=== PATIENT | male | born 1975 | race Caucasian/White ===

== ENCOUNTER 2021-11-09 22:59 | Emergency (ER) | payer OTHER, SELFPAY ==
[2021-11-09] VITALS (25 sets, daily range): BP systolic 161–222; BP diastolic 80–117; PULSE 80–95; RESP 13–26; TEMP 36.8; O2SAT 92–98
--- NOTE | 2021-11-09 23:00 | RT.EKG_ITS ---
APPROVED REPORT Exam: Resting ECG Reason for Exam: CHEST PAIN Patient Location: E HR:83 bpm ECG Measurements Heart Rate 83 AXIS VA 168 P 29 QRSd 105 QRS 17 QT 381 T 30 QTc 448 Conclusion Sinus rhythm...normal P axis, V-rate 60- 99 Probable left atrial enlargement...P >50mS, <-0.10mV V1 Physician: Sinus rhythm, rate 83, subtle less than a millimeter of elevation in V1, V2, no reciprocal depressions. No STEMI. No evidence of Brugada syndrome, epsilon wave, or delta wave. No de Winter s hyperacute T waves.
--- NOTE | 2021-11-09 23:00 | DI.CT_ITS ---
Exam(s) CT THORAX ABDOMEN CTA EXAM: CT THORAX ABDOMEN CTA CLINICAL HISTORY: chest pain, stabbing, central, severe HTN. TECHNIQUE: Imaging Protocol: Axial CT angiography was performed with multi-slice acquisition and mu lti-planar and/or 3D reconstructions. CONTRAST MATERIAL: Intravenous: Omnipaque 350 Contrast volume:structured data in ml COMPARISON: No exams were available for comparison FINDINGS: CT angiography of the chest was performed with intravenous infusion of 100 cc of Omnipaque 350. Fer tional scanning was continued through the upper abdomen. The lungs are clear. No pleural effusion. Tracheobronchial tree appears intact. No evidence of pulmonary embolic disease. Thoracic aorta is of normal diameter, no thoracic aortic an eurysm or dissection, major branch vessels appear intact. No mediastinal or hilar adenopathy. Images obtained through the upper abdomen show unremarkable appearance of the visualized portions of the liver, spleen, pancreas, and adrenals. Incidental 1 cm left hepatic lobe cyst. The left kidney is in superior pelvic location and is incompletely visualized. Right kidney is also incompletely vis ualized period no gross hydronephrosis or nephrolithiasis as seen.. IMPRESSION: Negative CT angiogram of the chest. No evidence of pulmonary embolic disease or thoracic aortic disse ction or aneurysm. Negative CT angiographic examination of the upper abdomen. RADIATION DOSE DELIVERED: 1,012.07mGy.cm Total DLP 1,012.07mGy.cm Total DLP !Error CTDIvol DATA REPOSITORY: All CT scans at this facility are submitted to the National Radiology Data Registry (NRDR) Dose Index Registry (DIR) with the [employer] (ACR). RADIATION OPTIMIZATION: All CT scans at this facility use at least one of these dose optimization te chniques: automated exposure control; mA and/or kV adjustment per patient size (includes targeted exa ms where dose is matched to clinical indication); or iterative reconstruction.
--- NOTE | 2021-11-09 23:16 | W.ED.GENAD ---
Discharge Plan Disposition Patient Disposition: HOME Condition: Good Discharge Details Clinical Impression: Chest pain Primary Care Provider: None,None ED Provider: Roland Harden Home Meds and New Rx's Prescriptions: No Action No Known Home Meds 0RF Discharge Instructions Instructions: Chest Pain (ED) Additional Instructions: At this time your work-up shows no current evidence of significant cardiac abnormality. The CT scans of your chest showed no problems with your large vessels, lungs, or aorta. Although the work-up is stable now, it is important that if you have any return of your symptoms return for reevaluation. It is also very important that you follow-up closely with primary care provider for reassessment and discussion of potential stress testing. Our care managers will help to establish new primary care provider for you. If you notice any worsening of your symptoms, or any new symptoms such as vomiting, diarrhea, fever, chills, shortness of breath, chest pain, numbness, weakness, or fainting , please return immediately to the emergency department for reevaluation. Please follow up with your primary care provider as soon as possible for reassessment and reevaluation. As always, it was a pleasure participating in your medical care today. Medical Decision Making 46-year-old male who denies any past medical history but he does not go and see a doctor regularly either, presents today for evaluation of chest pain. Patient states that on Friday he had an episode of sharp chest pain which also caused some associated shortness of breath. It is brief and lasted 5 to 15 minutes, and then gradually resolved on its own. It was not with exertion. This evening the episode returned again, it was worse than before, it started about an hour and a half ago. It was sharp in nature, he underwent from his back wrapping around his chest to the front of his chest. He states that it feels like a stabbing sensation. Movement and palpation do not seem to aggravate or worsen it. Does not appear to be seemingly improved by anything aside for time. Currently he states that it is transitioned now to a mild ache, but is still present in the center of his chest. He denies any current shortness of breath. He denies any pleuritic pain. He denies any recent long trips, surgeries or procedures. He denies any history of cardiac disease. But he does admit to a strong family history of cardiac disease especially on his mother side. His mother with massive heart attack at 56, and her male family members all had massive heart attack in their early 50s. Patient does not smoke. He denies any IV or illicit drug use. He denies any cocaine use. He denies any cough, fever or chills. He denies any syncope. No other complaints at this time. No other modifying factors. Physical exam demonstrates a well-appearing male. Blood pressure on the right is notably hypertensive in the low 200s. Blood pressure on the left upper extremity is slightly lower in the 170s to 180s. He otherwise remains hemodynamically stable. Pulses are equal bilaterally. Lungs are clear. There does not appear to be a food timing related component. Abdomen is nontender. Differential at this time does include pneumonia, musculoskeletal component, with the patient's strong family history of cardiovascular disease, and with his symptoms today, dissection and ACS are also on the differential. Initial screening EKG demonstrates very subtle ST elevations less than a millimeter. No reciprocal depressions. No evidence of STEMI. We will evaluate for these life-threatening etiologies, monitor closely and reassess. 1:52 AM On reassessment patient is feeling much better. Pain has completely resolved. Laboratory work-up is returned unremarkable, including troponin. proBNP is normal showing no signs of heart strain. Thyroid function appears stable. COVID test is negative. CTA shows no evidence of dissection, aneurysm, or emboli. We will continue to monitor closely and get repeat EKG and troponin. Patient's heart score is 3 which puts him in a low risk category. However he does have notable family history, which I do feel emphasizes the need for prompt follow-up for reassessment and further discussion of potential stress testing on an outpatient basis. 2:52 AM Laboratory work-up is returned to normal, initial EKG and repeat EKG are both stable. Troponin and delta troponin are both normal. Laboratory work-up shows normal liver function, normal proBNP, normal troponin. Normal thyroid function. Patient remains asymptomatic. Symptoms appear inconsistent with ACS, PE, or dissection at this time. However as stated before I do feel that close follow-up with PCP would be beneficial for reassessment and further discussion of stress testing. Patient has a low risk heart score at this time, patient feels well and would like to go home. Patient will be discharged. Discussed concerning red flags which to return. I have extensively reviewed the treatment plan and discharge instructions with the patient. I have addressed all patient concerns at this time. The patient was made aware of what symptoms to monitor for that would warrant a return to the emergency department. Discussed the plan with the patient, they demonstrate verbal understanding and agreement with our assessment and plan at this time. The documentation in this chart was dictated using [employer] dictation software. Please excuse any dictation errors. EKG 23: 06 Sinus rhythm, rate 83, subtle less than a millimeter of elevation in V1, V2, no reciprocal depressions. No STEMI. No evidence of Brugada syndrome, epsilon wave, or delta wave. No de Mock hyperacute T waves. FINDINGS: Pulmonary arteries: No pulmonary emboli. Aorta: No aortic aneurysm. No aortic dissection. Lungs: No consolidation. No masses. Pleural spaces: No pneumothorax. No pleural effusion. Heart: No cardiomegaly. No pericardial effusion. Lymph nodes: No enlarged lymph nodes. Bones/joints: No acute fracture. Soft tissues: No suspicious lesions. IMPRESSION: No acute findings. HPI General Date/Time Provider Initiated Documentation: 11/09/21 23:11. HPI Narrative: 46-year-old male who denies any past medical history but he does not go and see a doctor regularly either, presents today for evaluation of chest pain. Patient states that on Friday he had an episode of sharp chest pain which also caused some associated shortness of breath. It is brief and lasted 5 to 15 minutes, and then gradually resolved on its own. It was not with exertion. This evening the episode returned again, it was worse than before, it started about an hour and a half ago. It was sharp in nature, he underwent from his back wrapping around his chest to the front of his chest. He states that it feels like a stabbing sensation. Movement and palpation do not seem to aggravate or worsen it. Does not appear to be seemingly improved by anything aside for time. Currently he states that it is transitioned now to a mild ache, but is still present in the center of his chest. He denies any current shortness of breath. He denies any pleuritic pain. He denies any recent long trips, surgeries or procedures. He denies any history of cardiac disease. But he does admit to a strong family history of cardiac disease especially on his mother side. His mother with massive heart attack at 56, and her male family members all had massive heart attack in their early 50s. Patient does not smoke. He denies any IV or illicit drug use. He denies any cocaine use. He denies any cough, fever or chills. He denies any syncope. No other complaints at this time. No other modifying factors. Related Data Home Medications Medication Instructions Recorded Confirmed Unknown [No Known Home Meds] 11/09/21 11/09/21 Allergies Allergy/AdvReac Type Severity Reaction Status Date / Time No Known Allergies Allergy Unverified 11/09/21 23:10 General Stated Complaint: Chest Pain MEENU: 3 Review of Systems All systems reviewed & are unremarkable except as noted in HPI and below PFSH All Active Problems (Updated 11/10/21 @ 01:49 by Roland Harden DO) Chest pain (Acute) Social History Smoking/Tobacco Use Status: Never Smoking risk assessment performed?: Yes Alcohol Intake: never Substance use type: does not use Do you feel safe at home: Yes Do you feel safe in your relationship?: Yes Exam Narrative Exam Narrative: 1.Const: Well-nourished, Well-developed, appearing stated age 2.Eyes: PERRL, no conjunctival injection, and symmetrical lids. 3.ENT: Atraumatic external nose and ears. Moist MM. Neck: Symmetric, trachea midline, No thyromegaly. 4.CVS: +S1/S2, No murmurs or gallops. Peripheral pulses 2+ and equal in all extremities. Brisk capillary refill in all extremities. Radial pulses +2 bilaterally. 5.RESP: Unlabored respiratory effort. Clear to auscultation bilaterally. No wheezes rales or rhonchi 6.GI: Soft, Nontender/Nondistended, No hepatosplenomegaly. No guarding or rebound. 7.MSK: Normocephalic/Atraumatic, Extremities w/o deformity or ttp No cyanosis or clubbing, Normal movement of all extremities, no calf tenderness. 8.Skin: Warm, Dry. No rashes or lesions. 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 Sensation grossly intact, no focal neurologic deficits. 10.Psych: (AAO) x3. Appropriate mood and affect Course Vital Signs Vital signs: Vital Signs Temperature 36.8 C 11/09/21 23:05 Pulse 90 11/09/21 23:05 Respiratory Rate 21 11/09/21 23:05 Blood Pressure 221/101 H 11/09/21 23:05 Pulse Oximetry 97 11/09/21 23:05 Temperature 36.8 C 11/09/21 23:05 Temperature Source Oral 11/09/21 23:05 Pulse 90 11/09/21 23:05 Respiratory Rate 20 11/09/21 23:11 Respiratory Effort 11/09/21 23:11 Respiratory Depth Normal 11/09/21 23:11 Respiratory Pattern Normal 11/09/21 23:11 Blood Pressure 221/101 H 11/09/21 23:05 Pulse Oximetry 97 11/09/21 23:05 Pain Level 8 11/09/21 23:05
[2021-11-09] MEDS: nitroGLYcerin 0.4 MG TAB SL (23:17)
[2021-11-09] MEDS: Aspirin 81 MG CHEW 324 MG CH (23:17)
[2021-11-09 23:24] LABS: Source Nasal/Nares
[2021-11-09 23:25] LABS: Abs Immature Grans 0.04 10^3/uL (0.0-0.06); Absolute Basophil Count 0.06 10^3/uL (0.0-0.2); Absolute Lymphocyte Count 2.21 10^3/uL (1.2-3.4); Absolute Monocyte Count 0.76 10^3/uL (0.1-0.8); Absolute Neutrophil Count 6.42 10^3/uL (1.2-6.7); Basophils % 0.6; HCT 45.2 % (40.0-50.0); HGB 14.1 g/dL (13.5-17.5); Immature Grans % 0.4; Lymphocytes % 22.3; MCH 28.4 pg (27.0-33.0); MCHC 31.2 % (32.0-36.0); MCV 91.1 fL (80-95); MPV 10.3 fL (8.0-11.0); Monocytes % 7.7; Platelet Count 277 10^3/uL (130-400); RBC 4.96 10^6/uL (4.36-5.78); RDW 13.3 % (11.8-14.1); RDW-SD 44.9 fL; WBC 9.89 10^3/uL (4.4-10.8)
[2021-11-09 23:39] LABS: PTT Activated 24.9 sec (21.0-27.5); Prothrombin Time 10.5 sec (9.3-11.0)
[2021-11-09] MEDS: Omnipaque 350 MG/ML 100 ML BTL IJ (23:44)
[2021-11-09 23:47] LABS: ALT 41 U/L (16-63); AST 15 U/L (15-37); Albumin 3.8 g/dL (3.4-5.0); Alkaline Phosphatase 84 U/L (46-116); Anion Gap 6.7 mmol/L (3-11); BUN 12 mg/dL (7-18); Bilirubin, Total 0.3 mg/dL (0.2-1.0); CO2 28.3 mmol/L (21.0-32.0); CREATININE 1.1 mg/dL (0.70-1.30); Calcium 9.1 mg/dL (8.5-10.1); Chloride 104 mmol/L (98-107); Glucose 156 mg/dL (74-106); Lipase 111 U/L (73-393); NT-proBNP 7 pg/mL (<300); Potassium 3.4 mmol/L (3.5-5.1); Sodium 139 mmol/L (136-145); TSH (W/Ref FT4) 4.16 uIU/mL (0.36-3.74); Total Protein 7.6 g/dL (6.4-8.2); Troponin I < 50 ng/L (<or=60)
--- NOTE | 2021-11-09 23:55 | DI.VRAD_ITS ---
PROCEDURE INFORMATION: Exam: CTA Chest With Contrast Exam date and time: 11/09/2021 23:26 Age: 46 years old Clinical indication: Chest wall pain; Other: Stabbing pain, severe HTN; Abdominal pain; Generalized; Prior surgery; Surgery date: 6+ months; Surgery type: Appendectomy; Additional info: Chest pain, stabbing pain, severe HTN TECHNIQUE: Imaging protocol: Computed tomographic angiography of the chest with contrast. 3D rendering (Not supervised by radiologist): MIP and/or 3D reconstructed images were created by the technologist. Radiation optimization: All CT scans at this facility use at least one of these dose optimization techniques: automated exposure control; mA and/or kV adjustment per patient size (includes targeted exams where dose is matched to clinical indication); or iterative reconstruction. Contrast material: OMNI 350; Contrast volume: 100 ml; Contrast route: INTRAVENOUS (IV); COMPARISON: No relevant prior studies available. FINDINGS: Pulmonary arteries: No pulmonary emboli. Aorta: No aortic aneurysm. No aortic dissection. Lungs: No consolidation. No masses. Pleural spaces: No pneumothorax. No pleural effusion. Heart: No cardiomegaly. No pericardial effusion. Lymph nodes: No enlarged lymph nodes. Bones/joints: No acute fracture. Soft tissues: No suspicious lesions. IMPRESSION: No acute findings. PROCEDURE INFORMATION: Exam: CT Angiography Abdomen With Contrast Exam date and time: 11/09/2021 23:26 Age: 46 years old Clinical indication: Chest wall pain; Other: Stabbing pain, severe HTN; Abdominal pain; Generalized; Prior surgery; Surgery date: 6+ months; Surgery type: Appendectomy; Additional info: Chest pain, stabbing pain, severe HTN TECHNIQUE: Imaging protocol: Computed tomographic angiography images of the abdomen with intravenous contrast material. 3D rendering (Not supervised by radiologist): MIP and/or 3D reconstructed images were created by the technologist. Radiation optimization: All CT scans at this facility use at least one of these dose optimization techniques: automated exposure control; mA and/or kV adjustment per patient size (includes targeted exams where dose is matched to clinical indication); or iterative reconstruction. Contrast material: OMNI 350; Contrast volume: 100 ml; Contrast route: INTRAVENOUS (IV); COMPARISON: No relevant prior studies available. FINDINGS: Aorta: No aortic aneurysm. No aortic dissection. Celiac trunk and mesenteric arteries: No occlusion or significant stenosis. Renal arteries: No occlusion or significant stenosis. Liver: No hypervascular hepatic masses. Benign-appearing hepatic cyst. Gallbladder and bile ducts: No calcified stones. No ductal dilation. Pancreas: No ductal dilation. Spleen: No splenomegaly. Adrenals: No mass. Kidneys and ureters: The kidneys are partially imaged. 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 The lower margin is not seen and there could be a or should component. No hydronephrosis in the visualized collecting systems. Stomach and bowel: No obstruction. No mucosal thickening. Lymph nodes: No enlarged lymph nodes. Intraperitoneal space: No free air. No significant fluid collection. Bones/joints: No acute fracture. No dislocation. Soft tissues: No suspicious lesions. IMPRESSION: 1. No acute findings. 2. Incidental findings as described. Dictated and Authenticated by: Chante Tran MD. Ordering:LOW Watkins MD
[2021-11-10] VITALS (31 sets, daily range): BP systolic 151–178; BP diastolic 71–91; PULSE 77–92; RESP 13–22; O2SAT 92–96
[2021-11-10 00:04] LABS: FREE T4 0.91 ng/dL (0.76-1.46)
[2021-11-10 00:10] LABS: COVID-19 PCR Negative (Negative)
--- NOTE | 2021-11-10 01:45 | RT.EKG_ITS ---
APPROVED REPORT Exam: Resting ECG Reason for Exam: chest pain Patient Location: E HR:83 bpm ECG Measurements Heart Rate 83 AXIS ID 164 P 57 QRSd 107 QRS 25 QT 389 T 53 QTc 458 Conclusion Sinus rhythm...normal P axis, V-rate 60- 99 Probable left atrial enlargement...P >50mS, <-0.10mV V1 Physician: Sinus rhythm, rate 83, No significant st elevation or depression. no significant change fr om prior ekg No STEMI. No evidence of Brugada syndrome, epsilon wave, or delta wave. No de Mock hyperacute T waves.
--- NOTE | 2021-11-10 01:51 | NUR.NOTE ---
referral to care management to establish pcp care in 2-4 weeks for chest pain f/uNursing Note:
[2021-11-10 02:33] LABS: Troponin I < 50 ng/L (<or=60)
--- NOTE | 2021-11-12 11:57 | CMACTNOTE_ITS ---
- If Service Date Differs Date of service: 11/12/21 Time of Service: 11:57 Care Management Activity Note Dakotah is seen in the ED for chest pain. At the request of ED provider, NIRAJ coordinates a referral to Diya Duran, Ph.D., ANP, of [facility], on- call provider, to assist Dakotah in obtaining a follow up appointment in 2 - 4 weeks and in establishing care with a PCP. He has MVP for insurance.
== END 2021-11-10 03:01 | disposition home or self-care (01) ==
PROVIDERS: Emergency Provider Student in an Organized Health Care Education/Training Program
DX: R07.9 Chest pain, unspecified (principal); R06.02 Shortness of breath; R03.0 Elevated blood-pressure reading, without diagnosis of hypertension
CPT/HCPCS: 36415; 71275; 74175; 80053; 83690; 87635; 93005; 99284; 99285; 83880; 84439; 84443; 84484; 85025; 85610; 85730; 93010; J3490